=== PATIENT | female | born 1980 | race Caucasian/White ===

== ENCOUNTER 2016-12-26 19:00 | Observation (INO) | payer OTHER | END 2016-12-26 19:45 | disposition home or self-care (01) | LOC: FLD 19:00 | PROVIDERS: ADMIT Obstetrics & Gynecology; ATTEND Obstetrics & Gynecology | DX: O36.8190 Decreased fetal movements, unspecified trimester, not applicable or unspecified (principal) | CPT/HCPCS: G0378 ==

== ENCOUNTER 2017-01-15 00:19 | Inpatient (IN) | payer OTHER ==
--- NOTE | 2017-01-15 01:53 | OBPROG ---
Labor Progress Note Assessment/Plan: Assessment:cat 1 fhr denies regular pain continuing to leak meconium stained fluid irregular contractions denies questions discussed waiting x 8-12 hours exam 75/-3 cephalic posterior medium Plan:wait 8-12 h before augmentation, membrane stripping to encourage labor 01/15/17 01:51 Subjective/Intrapartum Course: 01/15/17 01:50 Doing well. Denies pain srom meconium stained fluid at 2300. 01/14/2017 + fm + bloody show irregular contractions - SVE Dilation (cm): 1 Effacement (%): 75 Station: -3 Membranes: SROM Amniotic Fluid Color: Meconium Stained - Contraction Pattern Assessment Current Contraction Pattern: Irregular - AP Antepartum Course: gbs negative. anxiety on problem list. + CF carrier. In the middle of a divorce. 01/15/17 01:53 - Physical Exam General Appearance: WD/WN, alert, no apparent distress Respiratory: chest non-tender, lungs clear, normal breath sounds Cardiac/Chest: regular rate, rhythm Abdomen: normal bowel sounds Extremities: normal range of motion, Andrae's sign (negative bilaterally) DTR- Lower Extremities: Knee (R): 1+, Knee (L): 1+ (no clonus) Skin: normal color, warm/dry Neuro/Psych: no motor/sensory deficits, alert, normal mood/affect, oriented x 3 Oxytocin Orders Assessment - Pre-Induction/Augmentation Assessment Gestational Age: 39 week(s) and 0 day(s) ICD10 Worksheet Patient Problems: Problems Problem Status Onset Premature rupture of membranes (PROM) at term with onset of labor after 24 hours , antepartum Acute - ICD10 Problem Qualifiers (1) Premature rupture of membranes (PROM) at term with onset of labor after 24 hours, antepartum
[2017-01-15] MEDS ORDERED: EPSOM SALT 454 GM TP PRN (01:57)
[2017-01-15] MEDS ORDERED: TERBUTALINE SULFATE 1 MG/ML VIAL IV PRN (01:57)
[2017-01-15] MEDS ORDERED: OLIVE OIL 118 ML BTL MISC PRN (01:57)
[2017-01-15] MEDS ORDERED: LR 1,000 ML IV PRN (01:57)
[2017-01-15] MEDS ORDERED: OXYTOCIN 20 UNIT in LR 1,000 ML IV PRN (01:57)
[2017-01-15 02:14] LABS: % IMMATURE GRANULYOCYTES 0.6 % (0.0-1.1); ABSOLUTE IMMATURE GRANULOCYTES 0.07 10^3/uL (0.00-0.10); ADD DIFF? NO; ADD MORPH? NO; ADD SCAN? NO; ATYPICAL LYMPHOCYTE FLAG 10 (0-99); FRAGMENT RBC FLAG 10 (0-99); HEMATOCRIT 37.9 % (38.0-47.0); HEMOGLOBIN 13.2 g/dL (12.6-16.3); LEFT SHIFT FLG 0 (0-99); LIPEMIA HEMOLYSIS FLAG 90 (0-99); MEAN CELL HEMOGLOBIN 31.9 pg (27.9-34.1); MEAN CELL HEMOGLOBIN CONCENTR. 34.8 g/dL (32.4-36.7); MEAN CELL VOLUME 91.5 fL (81.5-99.8); PLATELET CLUMPS FLAG 0 (0-99); PLATELET COUNT 247 10^3/uL (150-400); RED BLOOD CELL COUNT 4.14 10^6/uL (4.18-5.33); RED CELL DISTRIBUTION WIDTH 12.9 % (11.5-15.2)
--- NOTE | 2017-01-15 03:00 | GHP ---
[f rep st] HISTORY AND PHYSICAL DATE OF ADMISSION: 01/15/2017 HISTORY OF PRESENT ILLNESS: The patient is a 36-year-old, 1, para 0, with an EDC of 01/23/20 17, which gives her a gestational age of 39 weeks, who comes in with complaint of rupture of membrane s at 2300 on 01/14/2017. Meconium-stained fluid. Positive bloody show. Positive movement. T he patient has been seen through [facility] since 8-/ weeks' gestation with unknown LMP a nd a verification with an early ultrasound with initial visit. MEDICAL HISTORY: History of depression, history of swollen lymph nodes. Avoids gluten. SURGICAL HISTORY: [place] teeth extraction, toenail extraction in [facility]. FAMILY HISTORY: Noncontributory. OTHER MEDICAL HISTORY: Patient has a history of IBS. Patient is a positive CF carrier. FOC is nega tive. SOCIAL HISTORY: The patient is . Denies alcohol use. Denies tobacco use. Denies drug use . FAMILY HISTORY: Noncontributory. LABS: Patient is A positive, antibody negative. RPR is reactive. TP-PA is negative. Rubella is im mune. Hepatitis is negative. HIV is negative. Positive CF carrier. Pap, gonorrhea, and chlamydia are negative. AFP is negative. Verifi is negative. One-hour GTT is within normal limits. PHYSICAL EXAMINATION: Patient is awake, alert, oriented x3. Lungs are clear bilaterally. Heart rat e is regular and rhythmic. Bowel sounds are positive in all 4 quadrants. DTRs are 1+ with no clonus , and Homans sign is negative bilaterally. PLAN OF CARE: 1. GBS negative. 2. Expectant management of labor. 3. Membrane stripping with exam. 4. Consult Dr. Holly Bowens on plan of care. /[id number]/MODL
[2017-01-15] MEDS ORDERED: OXYTOCIN/LR *STANDARD DOSE PROTOCOL IV SCH (06:30)
[2017-01-15] MEDS ORDERED: OXYTOCIN/RINGERS LACTATE 500 ML IV SCH (06:30)
[2017-01-15] MEDS ORDERED: OLIVE OIL 118 ML BTL ONE (07:45)
[2017-01-15] MEDS ORDERED: AMMONIA AROMATIC 1 EACH AMP IH ONE (07:45)
[2017-01-15] MEDS ORDERED: LIDOCAINE 1% 300 MG/30 ML SDV ONE (07:45)
[2017-01-15] MEDS ORDERED: MISOPROSTOL 200 MCG TAB ONE (07:46)
[2017-01-15] MEDS ORDERED: TERBUTALINE SULFATE 1 MG/ML VIAL ONE (07:46)
[2017-01-15] MEDS ORDERED: fentaNYL 2MCG/ML/BUP 0.1% RTU 100 ML BAG EP ONE (11:24)
[2017-01-15] MEDS ORDERED: fentaNYL 100 MCG/2 ML INJ ONE (11:25)
[2017-01-15] MEDS ORDERED: BUPIVACAINE 0.25% 30 ML SDV ONE (11:25)
[2017-01-15] MEDS ORDERED: PHENYLEPHRINE HCL 100 MCG/ML SYR ONE (11:25)
--- NOTE | 2017-01-15 12:39 | PREANESOB ---
Obstetric Pre-Anesthesia Info - General Info Proposed Procedure: Labor and delivery with pitocin. : 1 Para: 0 WBD: 39 - Info Status: Full Term Monitors: External FHR Baseline (bpm): 130 FHR Pattern: Reassuring - Labor Status Cervical Dilation per last OB SVE: 1 Station per last OB SVE: -3 Rupture of Membranes Time: 23:00 Pitocin: In Use Indications for Labor Analgesia: Induction of Labor (SROM.), Pain Control Labor Epidural: Proposed Anesthesia ROS: [place] teeth. Allergies/Adverse Reactions: Allergy/AdvReac Type Severity Reaction Status Date / Time No Known Allergies Allergy Unverified 12/26/16 19:37 Visit Medications: Generic Name Dose Route Start Last Admin Trade Name Freq PRN Reason Stop Dose Admin Lactated Ringer's 1,000 mls @ 0 mls/hr 01/15/17 01:57 01/15/17 08:19 Lr IV 07/14/17 01:56 1,000 mls PRN PRN Administration SEE PROTOCOL CONDITIONS Protocol Per Protocol Oxytocin 20 unit/ Lactated 1,002 mls @ 150 mls/hr 01/15/17 01:57 Ringer's IV PRN PRN Post- bleeding Oxytocin 30 unit/ Lactated 503 mls @ 0 mls/hr 01/15/17 06:30 01/15/17 08:19 Ringer's IV 07/14/17 06:29 503 mls CONT CHRISTIANO Administration Protocol Per Protocol Ibuprofen 600 mg 01/15/17 01:57 Motrin PO 07/14/17 01:56 Q6HRS PRN post , inflammation Magnesium Sulfate 454 gm 01/15/17 01:57 Epsom Salt TP 07/14/17 01:56 Q1H PRN perineal discomfort Franklin Oil 118 ml 01/15/17 01:57 Sweet Oil MISC 07/14/17 01:56 ONCE PRN perineal massage Terbutaline Sulfate 0.25 mg 01/15/17 01:57 Brethine IV 07/14/17 01:56 ONCE PRN Tachysystole Discontinued Medications Generic Name Dose Route Start Last Admin Trade Name Freq PRN Reason Stop Dose Admin Ammonia (Aromatic Spirit) Confirm 01/15/17 07:45 Ammonia Aromatic Administered 01/15/17 07:46 Dose 1 each IH .STK-MED ONE Bupivacaine HCl Confirm 01/15/17 11:25 Sensorcaine 0.25% Sdv Administered 01/15/17 11:26 Dose 30 ml .ROUTE .STK-MED ONE Fentanyl Confirm 01/15/17 11:25 Sublimaze Administered 01/15/17 11:26 Dose 100 mcg .ROUTE .STK-MED ONE Fentanyl/Bupivacaine HCl Confirm 01/15/17 11:24 Fentanyl/Bupivacaine/Ns 2 Mcg/Ml 0.1% (Premix Administered 01/15/17 11:25 Dose 100 ml EP .STK-MED ONE Oxytocin/Lactated Ringer's 500 mls @ 0 mls/hr 01/15/17 06:30 Pitocin 30 Units/Lr (Premix) IV 07/14/17 06:29 CONT CHRISTIANO Protocol Per Protocol Lidocaine HCl Confirm 01/15/17 07:45 Lidocaine Hcl 1% Administered 01/15/17 07:46 Dose 300 mg .ROUTE .STK-MED ONE Misoprostol Confirm 01/15/17 07:46 Cytotec Administered 01/15/17 07:47 Dose 800 mcg .ROUTE .STK-MED ONE Franklin Oil Confirm 01/15/17 07:45 Sweet Oil Administered 01/15/17 07:46 Dose 118 ml .ROUTE .STK-MED ONE Phenylephrine HCl Confirm 01/15/17 11:25 Neosynephrine Administered 01/15/17 11:26 Dose 1,000 mcg .ROUTE .STK-MED ONE Terbutaline Sulfate Confirm 01/15/17 07:46 Brethine Administered 01/15/17 07:47 Dose 1 mg .ROUTE .STK-MED ONE - Anesthesia History Response to Local Anesthetics: Normal Anesthesia & Operative History: No Prior Problems Family Anesthesia History: Not Applicable - Social History Substance Use/Abuse: Denies - Focused Exam Blood Pressure: 115/70 Heart Rate: 68 Respiratory Rate: 18 Height/Weight (Nursing): Height 165.1 cm Weight 68.492 kg Physical Exam: Within normal limits. ASA Status: II Labs: 01/15/17 01:35 Patient ABO/Rh A POSITIVE 01/15/17 01:35 - Plan Anesthetic Plan: CSE Consent Signed and on Chart: Yes Patient/Guardian Understands and Agrees to Plan: Yes Urgent/Emergent Case: Anes eval completed preop but documented later for safe timely pt care (Written consent signed after CSE.)
[2017-01-15] MEDS ORDERED: PHENYLEPHRINE HCL 100 MCG/ML SYR IVP PRN (12:42)
[2017-01-15] MEDS ORDERED: ONDANSETRON 4 MG/2 ML VIAL IVP PRN (12:42)
--- NOTE | 2017-01-15 12:42 | POSTANESTH ---
Post Anesthetic Evaluation Cardiovascular Status: Normal, Stable, Similar to Pre-Op Cond Respiratory Status: Normal, Stable, Similar to Pre-op Cond. Level of Consciousness/Mental Status: Can Participate in Eval, Alert and Oriented Pain Control: Adequate, Prn Tx Ordered Nausea/Vomiting Control: Adequate, Prn Tx Ordered Complications Possibly Related to Anesthesia: None Noted
[2017-01-15] MEDS ORDERED: fentaNYL 2MCG/ML/BUP 0.1% RTU 100 ML EP SCH (13:00)
[2017-01-15] MEDS ORDERED: LR 500 ML IV SCH (13:00)
--- NOTE | 2017-01-15 13:02 | OBPROG ---
Labor Progress Note Assessment/Plan: Assessment: 36 y/o @ 39 0/7 weeks with SROM light meconium on pitocin for augmentation of labor. Plan: Good cervical progression and pt now comfortable with her epidural. Continue to dose to achieve a good labor pattern. Will re check 2-3 hours. 01/15/17 13:00 Subjective/Intrapartum Course: 01/15/17 01:50 Doing well. Denies pain srom meconium stained fluid at 2300. 01/14/2017 + fm + bloody show irregular contractions 01/15/17 12:59 Pt doing well now comfortable with her epidural. Resting. Objective: 01/15/17 01:35 Patient ABO/Rh A POSITIVE 01/15/17 01:35 Temp Pulse Resp BP Pulse Ox 68 18 115/70 01/15/17 12:41 01/15/17 12:41 01/15/17 12:41 - SVE Dilation (cm): 6 Effacement (%): 90 Station: -1 Membranes: SROM Amniotic Fluid Color: Meconium Stained - Contraction Pattern Assessment Current Contraction Pattern: Irregular (Q 2-4) - FHR Assessment Mike FHR (bpm): 120 FHR Pattern Variability: Moderate FHR Category: 1 - AP Antepartum Course: gbs negative. anxiety on problem list. + CF carrier. In the middle of a divorce. 01/15/17 01:53 Oxytocin Orders Assessment - Pre-Induction/Augmentation Assessment Gestational Age: 39 week(s) and 0 day(s) ICD10 Worksheet Patient Problems: Problems Problem Status Onset Premature rupture of membranes (PROM) at term with onset of labor after 24 hours , antepartum Acute
[2017-01-15] MEDS ORDERED: ACETAMINOPHEN 325 MG TAB PO PRN (16:38)
[2017-01-15] MEDS ORDERED: SIMETHICONE 80 MG TAB CHEW PO PRN (16:38)
[2017-01-15] MEDS ORDERED: HYDROCORTISONE 0.5% CREAM TP PRN (16:38)
[2017-01-15] MEDS ORDERED: HYDROCODONE/APAP 5/325 TAB PO PRN (16:38)
--- NOTE | 2017-01-15 16:42 | OBDEL ---
Info Type: Vaginal Presentation at Delivery: Vertex L&D Analgesia/Anesthesia Type: Epidural GBS+: No Intrapartum Medications: Generic Name Dose Route Start Last Admin Trade Name Freq PRN Reason Stop Dose Admin Lactated Ringer's 1,000 mls @ 0 mls/hr 01/15/17 01:57 01/15/17 08:19 Lr IV 07/14/17 01:56 1,000 mls PRN PRN Administration SEE PROTOCOL CONDITIONS Protocol Per Protocol Oxytocin 30 unit/ Lactated 503 mls @ 0 mls/hr 01/15/17 06:30 01/15/17 08:19 Ringer's IV 07/14/17 06:29 503 mls CONT CHRISTIANO Administration Protocol Per Protocol - Infant Care Provider Underwriting Operations Manager/SWING TYPE LATHE OPERATOR: Lori De La Vega - Hospital Course Intrapartum: 01/15/17 01:50 Doing well. Denies pain srom meconium stained fluid at 2300. 01/14/2017 + fm + bloody show irregular contractions 01/15/17 12:59 Pt doing well now comfortable with her epidural. Resting. Indications for Delivery: SROM Vaginal Delivery - Delivery Provider Delivery Physician/CNM: Zara Bruce - Labor and Delivery Onset of Contractions Date: 01/15/17 Onset of Contractions Time: 10:45 Onset of Contractions Type: Augmented Rupture of Membranes Date: 01/14/17 Rupture of Membranes Time: 23:00 Rupture of Membranes Type: Spontaneous Amniotic Fluid Color: Meconium Stained Dilation Complete Date: 01/15/17 Dilation Complete Time: 15:02 Placenta Delivery Date: 01/15/17 Placenta Delivery Time: 16:22 Total Hours of Labor: 5 Laceration: 2nd Degree Repair: 2-0, Vicryl Vaginal Sponge Count Correct: Yes Vaginal Needle Count Correct: Yes Vaginal Sweep Performed: Yes EBL: 250 Delivery Events: Other (Specify) (compound posterior hand) - Medications Labor Augmentation/Induction Methods Used: Pitocin Labor Augmentation/Induction Indication: Contraction Strength Inadequate, Other (Specify) (SROM with inadequate labor) [place] Data Mike Delivery Date: 01/15/17 Delivery Time: 16:17 KARUNA: 01/22/17 Gestational Age: 39 week(s) and 0 day(s) Sex of : Male Score (1 Min): 7 Score (5 Min): 9 ICD10 Worksheet Patient Problems: Problems Problem Status Onset Premature rupture of membranes (PROM) at term with onset of labor after 24 hours , antepartum Acute (spontaneous vaginal delivery) Acute - ICD10 Problem Qualifiers (1) (spontaneous vaginal delivery)
[2017-01-15] MEDS: IBUPROFEN 600 MG TAB PO PRN ×2 (16:55→23:07)
[2017-01-15] MEDS: DOCUSATE SODIUM 100 MG CAP PO PRN (23:07)
[2017-01-16] MEDS: IBUPROFEN 600 MG TAB PO PRN ×3 (05:22→17:40)
--- NOTE | 2017-01-16 11:28 | OBPP ---
Progress Note Assessment/Plan: Assessment: 36 yo WF PPD#1 s/p of VMI in afternoon on 01/15/17. Doing well. Plan: Routine PP care 01/16/17 11:23 Subjective/ Course: Denies significant pain and uterine cramping. She reports minimal lochia. She is and ambulating without difficulty. She is voiding without difficulty. 01/16/17 11:25 Objective: 01/15/17 01:35 Patient ABO/Rh A POSITIVE 01/15/17 01:35 Temp Pulse Resp BP Pulse Ox 36.2 C 66 20 107/67 98 01/15/17 19:28 01/15/17 19:28 01/15/17 19:28 01/15/17 19:28 01/15/17 19:28 Uterine Position/Fundal Height: Umbilicus -2 Uterine Tone: Firm Physical Exam - Physical Exam EENT: PERRL/EOMI Neck: supple Respiratory: lungs clear, normal breath sounds Cardiac/Chest: normal peripheral pulses, regular rate, rhythm Abdomen: normal bowel sounds, soft Extremities: normal range of motion, normal inspection Skin: normal color, warm/dry Neuro/Psych: alert, normal mood/affect, oriented x 3
[2017-01-16] MEDS: DOCUSATE SODIUM 100 MG CAP PO PRN ×2 (11:36→21:04)
[2017-01-16 21:20] VITALS: RESP 16; O2SAT 97
[2017-01-17] MEDS: IBUPROFEN 600 MG TAB PO PRN ×2 (01:37→07:54)
[2017-01-17] MEDS: DOCUSATE SODIUM 100 MG CAP PO PRN (07:54)
[2017-01-17 09:21] VITALS: BP 88/52; PULSE 69; TEMP 98.4
--- NOTE | 2017-01-17 12:27 | OBGCSDC ---
General Delivery Information - General Info : 1 Para: 1 Abortions: 0 Type: Vaginal L&D Analgesia/Anesthesia Type: Epidural Admission Date: 01/15/17 Labs: Patient ABO/Rh A POSITIVE 01/15/17 01:35 Hct 37.9 % (38.0-47.0) L 01/15/17 01:35 - Hospital Course Antepartum: gbs negative. anxiety on problem list. + CF carrier. In the middle of a divorce. 01/15/17 01:53 Intrapartum: 01/15/17 01:50 Doing well. Denies pain srom meconium stained fluid at 2300. 01/14/2017 + fm + bloody show irregular contractions 01/15/17 12:59 Pt doing well now comfortable with her epidural. Resting. : Denies significant pain and uterine cramping. She reports minimal lochia. She is and ambulating without difficulty. She is voiding without difficulty. 01/16/17 11:25 01/17/17 12:24 S) pt doing well, she denies any pain. reports min bleeding; going well O) VSS Exam: Head: normocephalic, atraumatic Heart RRR, no murmur Chest: CTA-B Abd: soft, nontender Uterus: firm @ U-1 lochia: min rubra, no clots extremities: trace edema, negative davis's sign neuro: grossly normal A) [id number] s/p P) d/c home today routine PP care pelvic rest x 6 weeks RTO in 4/6 weeks 01/17/17 12:26 01/17/17 12:27 Vaginal - Delivery Provider Delivery Physician/CNM: Zara Bruce - Diagnosis Labor: Augmented Rupture of Membranes Type: Spontaneous Amniotic Fluid Color: Meconium Stained Laceration: 2nd Degree Repair: 2-0, Vicryl Delivery Events: Other (Specify) (compound posterior hand) - Delivery EBL: 250 Data Mike Delivery Date: 01/15/17 Delivery Time: 16:17 KARUNA: 01/22/17 Gestational Age: 39 week(s) and 2 day(s) Sex of : Male [place] Weight (gm): 2818 g Score (1 Min): 7 Score (5 Min): 9 Discharge Information - Discharge Information Prescriptions: Ibuprofen [Motrin (*)] 600 mg PO Q6HRS PRN #30 tab PRN Reason: post , inflammation Instruction/Follow Up: Four Weeks
== END 2017-01-17 12:20 | disposition home or self-care (01) | DRG 775 ==
LOC: FLD 00:19 → OBSVTOIN 01:58 → FOB 18:45
PROVIDERS: ADMIT Advanced Practice Midwife; ATTEND Obstetrics & Gynecology
DX: O42.02 Full-term premature rupture of membranes, onset of labor within 24 hours of rupture (principal); O70.1 Second degree perineal laceration during delivery; O77.0 Labor and delivery complicated by meconium in amniotic fluid; O32.8XX0 Maternal care for other malpresentation of fetus, not applicable or unspecified; Z3A.39 39 weeks gestation of pregnancy; Z37.0 Single live birth
CPT/HCPCS: J2370; J3010; J3105

== ENCOUNTER 2017-03-05 07:18 | Day surgery (SDC) | payer OTHER ==
[2017-03-05] MEDS ORDERED: ceFAZolin 2 GM/SWFI 2 GM/20 ML SYR IVP ONE (07:26)
--- NOTE | 2017-03-05 08:18 | GHP ---
[f rep st] PREOP HISTORY AND PHYSICAL DATE OF ADMISSION: 03/05/2017 ADMITTING DIAGNOSIS: Persistent right Bartholin gland cyst. HISTORY OF PRESENT ILLNESS: The patient is a 36-year-old 1, para 1-0-0-1, who is 8 weeks sta tus post a spontaneous vaginal delivery without complication. She was evaluated for her routine 6 we eks visit and was found to be healing well. However, patient had persistent perineal pain and was unsure if it was delay in her healing for her secondary perineal laceration or other etiolog y. On examination, the patient was seen to have a right Bartholin gland cyst, approximately 3 x 3 cm . Her perineal laceration sutures were intact, and there were no other complications or anatomical a lterations. We initially decided to follow expectantly because patient was not having significant pa in. Patient had sitz baths and gentle massage to try to induce the Bartholin gland cyst to drain. T hat was not effective over a course of a week, and on re-evaluation, she underwent an office I and D with local anesthesia, and there was purulent material extruded from the Bartholin's gland cyst. The area was irrigated copiously, and initially, the size went down dramatically. 4 days later, the pat ient was re-evaluated, and the cyst had reaccumulated. It was rubber cutting machine tender, and I gave the patient a n option of repeat deeper I and D in the office versus a Bartholin's gland cyst marsupialization, and patient wished to have definitive therapy with a marsupialization. She was consented for the proced ure. She understood the risks and benefits, the risks including bleeding, infection, damage to the v ulva and the Bartholin gland cyst, reaccumulation, and need for additional procedures. She understoo d these risks and benefits and agreed to proceed. PAST OBSTETRICAL HISTORY: She has had 1 . She is status post a spontaneous vaginal deliver y on January 15, 2017. She is currently nursing her baby, and everyone is doing well. PAST GYNECOLOGICAL HISTORY: The patient has no significant gynecological history. She has a normal menstrual triad. No history of any STDs. Never had a Bartholin's gland cyst before. PRIOR MEDICAL HISTORY: History of depression. History of lymphadenopathy. She avoids gluten for GI distress. SURGICAL HISTORY: [place] teeth extraction and toenail extraction in college. ALLERGIES: She has no known drug allergies. FAMILY HISTORY: Noncontributory. REVIEW OF SYSTEMS: Today is negative, except for the perineal discomfort as above. Patient is nursi ng her baby, feeling well, has had adequate weight loss and good energy in this period. PHYSICAL EXAMINATION: VITAL SIGNS: Subjectively today, she is afebrile. Vital signs are stable. C HEST: Clear to auscultation bilaterally. HEART: Regular rate and rhythm, no murmur. ABDOMEN: Sof t, nontender, nondistended. Normal bowel sounds. BREAST: No masses. No difficulties with mastitis . No abnormal drainage. PERINEUM: 3 x 3 cm right Bartholin gland cyst in the area where the incisi on was made for the I and D. Her perineal laceration from her delivery is completely healed. The va carlos is intact. Normal parous cervix. Uterus is anteverted, anteflexed, mobile, nontender. No adne xal masses. ASSESSMENT/PLAN: A 36-year-old 1, para 1-0-0-1, with persistent Bartholin gland cyst, for Ba rtholin gland cyst marsupialization. /[id number]/MODL
[2017-03-05] MEDS ORDERED: LR 1,000 ML IV ONE (08:19)
[2017-03-05] MEDS ORDERED: LIDOCAINE 1% 2 ML INJ ID PRN (08:19)
--- NOTE | 2017-03-05 08:21 | PDANEPAE ---
ANE History of Present Illness Bertholyn's cyst marsupilazation ANE Past Medical History - Cardiovascular History Hx Hypertension: No Hx Arrhythmias: No Hx Chest Pain: No Hx Coronary Artery / Peripheral Vascular Disease: No Hx CHF / Valvular Disease: No Hx Palpitations: No Cardiovascular History Comment: low BP - Pulmonary History Hx COPD: No Hx Asthma/Reactive Airway Disease: No Hx Recent Upper Respiratory Infection: No Hx Oxygen in Use at Home: No Hx Sleep Apnea: No Sleep Apnea Screening Result - Last Documented: Negative - Neurologic History Hx Cerebrovascular Accident: No Hx Seizures: No Hx Dementia: No - Endocrine History Hx Diabetes: No Hypothyroid: No - Renal History Hx Renal Disorders: No - Liver History Hx Hepatic Disorders: No - Neurological & Psychiatric Hx Hx Neurological and Psychiatric Disorders: No - Cancer History Hx Cancer: No - GI History GERD: no Hx Gastrointestinal Disorders: Yes Gastrointestinal History Comment: constipation - Other Health History Other Health History: vaginal delivery Dec. painful Bartholin cyst - Chronic Pain History Chronic Pain: No - Surgical History Prior Surgeries: tonsillectomy. wisdom teeth -oral surgeon's ANE Review of Systems Review of Systems: - Exercise capacity METS (RN): 4 METS ANE Patient History - Allergies Allergies/Adverse Reactions: codeine Allergy (Verified 03/04/17 15:33) Vomiting - Home Medications Home Medications: Miralax 17 gm (*) 03/04/17 [Last Taken Unknown] - Anes Hx Anes Hx: awareness under anesthesia (Pt. describes "waving her hand" during tonsillectomy) - Smoking Hx Smoking Status: Former smoker - Family Anes Hx Family Anes Hx: none ANE Labs/Vital Signs - Vital Signs Height: 165.1 cm Weight: 58.06 kg ANE Physical Exam - Airway Neck exam: FROM Mallampati Score: Class 2 Mouth exam: normal dental/mouth exam - Pulmonary Pulmonary: clear to auscultation - Cardiovascular Cardiovascular: regular rate and rhythym - ASA Status ASA Status: II ANE Anesthesia Plan Anesthesia Plan: GA w LMA (alternatives discussed. Patient prefers GA. Questions answered.)
[2017-03-05] MEDS ORDERED: BUPIVACAINE 0.25% 30 ML SDV ONE (08:24)
[2017-03-05] MEDS ORDERED: MIDAZOLAM 2 MG/2 ML VIAL IVP ONE (08:28)
[2017-03-05] MEDS ORDERED: fentaNYL 100 MCG/2 ML INJ ONE ×2 (08:32→10:00)
[2017-03-05] MEDS ORDERED: PROPOFOL 200 MG/20 ML VIAL ONE ×2 (08:33)
[2017-03-05] MEDS ORDERED: DEXAMETHASONE 4 MG/ML VIAL ONE (08:33)
[2017-03-05 08:39] VITALS: PULSE 69
[2017-03-05] MEDS ORDERED: ONDANSETRON 4 MG/2 ML VIAL ONE (09:09)
[2017-03-05] MEDS ORDERED: KETOROLAC 30 MG/1 ML SDV ONE (09:24)
[2017-03-05] MEDS ORDERED: HYDROCODONE/APAP 5/325 TAB PO PRN (09:44)
[2017-03-05] MEDS ORDERED: IBUPROFEN 600 MG TAB PO PRN (09:45)
[2017-03-05] MEDS ORDERED: DEXAMETHASONE 4 MG/ML VIAL IVP PRN (09:47)
[2017-03-05] MEDS ORDERED: NALOXONE HCL 0.4 MG/ML INJ IVP PRN (09:47)
--- NOTE | 2017-03-05 09:48 | POSTOPPROG ---
Post Op Note Date of Operation: 03/05/17 Surgeon: Zara Bruce Anesthesiologist: Dr Sam Cannon Anesthesia: GET(General Endotracheal) Pre-op Diagnosis: persistent Bartholian's gland cyst right Post-op Diagnosis: same Procedure: Right Bartholian's gland cyst marsupilization Findings: right Bartholian's gland cyst Inf/Abcess present in the surg proc area at time of surgery?: No Depth: Superfical (Skin SQ) EBL: 50-100 Total fluids administered: 600 Complications: none Specimen(s): right Bartholian's gland cyst wall
[2017-03-05] MEDS: fentaNYL 100 MCG/2 ML INJ IVP PRN ×2 (10:01→10:28)
--- NOTE | 2017-03-05 10:20 | PDANEPAE ---
ANE History of Present Illness EDG and colonoscopy ANE Past Medical History - Cardiovascular History Hx Hypertension: No Hx Arrhythmias: No Hx Chest Pain: No Hx Coronary Artery / Peripheral Vascular Disease: No Hx CHF / Valvular Disease: No Hx Palpitations: No Cardiovascular History Comment: low BP - Pulmonary History Hx COPD: No Hx Asthma/Reactive Airway Disease: No Hx Recent Upper Respiratory Infection: No Hx Oxygen in Use at Home: No Hx Sleep Apnea: No Sleep Apnea Screening Result - Last Documented: Negative - Neurologic History Hx Cerebrovascular Accident: No Hx Seizures: No Hx Dementia: No - Endocrine History Hx Diabetes: No Hypothyroid: No - Renal History Hx Renal Disorders: No - Liver History Hx Hepatic Disorders: No - Neurological & Psychiatric Hx Hx Neurological and Psychiatric Disorders: No - Cancer History Hx Cancer: No - GI History GERD: no Hx Gastrointestinal Disorders: Yes Gastrointestinal History Comment: constipation - Other Health History Other Health History: vaginal delivery Dec. painful Bartholin cyst - Chronic Pain History Chronic Pain: No - Surgical History Prior Surgeries: tonsillectomy. wisdom teeth -oral surgeon's ANE Review of Systems Review of Systems: - Exercise capacity METS (RN): 4 METS ANE Patient History - Allergies Allergies/Adverse Reactions: codeine Allergy (Verified 03/04/17 15:33) Vomiting - Home Medications Home Medications: Miralax 17 gm (*) 03/04/17 [Last Taken 03/04/17] - NPO status NPO Since - Liquids (Date): 03/05/17 NPO Since - Liquids (Time): 05:45 NPO Since - Solids (Date): 03/04/17 NPO Since - Solids (Time): 19:00 - Anes Hx Anes Hx: no prior problems - Smoking Hx Smoking Status: Former smoker - Alcohol Use Alcohol Use: Other (6 beers/day) - Family Anes Hx Family Anes Hx: none ANE Labs/Vital Signs - Vital Signs Blood Pressure: 100/63 Heart Rate: 69 Respiratory Rate: 12 O2 Sat (%): 95 Height: 165.1 cm Weight: 58.06 kg
--- NOTE | 2017-03-05 10:28 | GOP ---
[f rep st] OPERATIVE REPORT DATE OF OPERATION: 03/05/2017 SURGEON: Zara Bruce MD ANESTHESIA: General anesthesia. ANESTHESIOLOGIST: Dr. Sam Boyer. PREOPERATIVE DIAGNOSIS: Persistent right Bartholin's gland cyst. POSTOPERATIVE DIAGNOSIS: Persistent right Bartholin's gland cyst. PROCEDURE PERFORMED: Marsupialization of a right Bartholin's gland cyst. FINDINGS: ESTIMATED BLOOD LOSS: For the procedure was 50 cc. INDICATIONS: The patient is a 36-year-old 1, para 1-0-0-1, who is 8 weeks status post a spon taneous vaginal delivery without any complication. She presented for her 6 weeks visit wi th increasing pain in her perineum, concern for improper healing of her second-degree perineal lacera tion. Upon examination, the patient was found to have a right Bartholin's gland cyst and a well-heal ed second-degree perineal laceration. The patient was initially followed expectantly with sitz baths and gentle massage that did not help. In fact, the Bartholin's gland cyst worsened. She had an off ice I and D and purulent material was seen upon extrusion on the office I and D. The patient tolerat ed that well, but presented for followup 1 week later, and the gland was persistent and increasing in pain again. The patient was offered a repeat office I and D versus a surgical marsupialization in t operating room and patient wished to have surgery. She was consented for the procedure. She unde rstood the risks and benefits, the risks including bleeding, infection, damage to the vulva and need for additional procedures. She understood these risks and benefits agreed to proceed. DESCRIPTION OF PROCEDURE: Patient was taken to the operating room where she was placed under general anesthesia without difficulty. She was prepped and draped in the dorsal lithotomy position, and she had previously drained her bladder. After WHR time-out was performed, the right labium minora and p erineum were grasped with Allis clamps and a cruciate incision was made along the right vaginal wall overlying the Bartholin's gland cyst and dissection was carried down deep through the Bartholin's gla nd cyst. The cyst wall was entered and grasped and the majority of the gland was removed with Metzen jacqui scissors until the cyst wall was opened. Marsupialization was then performed with 2-0 Vicryl in a circumferential fashion, sewing the cyst wall to the skin of the vagina in an open fashion. There were small areas of bleeding that were cauterized and sutured with [id number] sutures of 2-0 Vi cryl, and good hemostasis was obtained. There was noted to be entry into the cavity on the right on the right vulvar cyst wall with appearance of fat. The cavity was then packed with iodoform gauze an d hemostasis was obtained. The patient tolerated the procedure well. Sponge, lap, needle, and instr ument counts were correct x2. Patient went to the recovery room in good condition. IV FLUIDS: 500 cc. URINE OUTPUT: Not measured. PATHOLOGIC SPECIMEN: Will be Bartholin's gland cyst wall. /[id number]/MODL
[2017-03-05] MEDS ORDERED: HYDROCODONE/APAP 5/325 TAB ONE (10:48)
[2017-03-05 11:14] VITALS: RESP 13
[2017-03-05 11:48] VITALS: BP 101/68; TEMP 97.7; O2SAT 97
--- NOTE | 2017-03-05 15:43 | POSTANESTH ---
Post Anesthetic Evaluation Cardiovascular Status: Normal, Stable Respiratory Status: Normal, Stable Level of Consciousness/Mental Status: Can Participate in Eval Pain Control: Adequate, Prn Tx Ordered Nausea/Vomiting Control: Adequate, Prn Tx Ordered Complications Possibly Related to Anesthesia: None Noted
== END 2017-03-05 12:02 | disposition home or self-care (01) ==
LOC: FSGY 07:18
PROVIDERS: ATTEND Obstetrics & Gynecology
PROC: 0U9L0ZZ Drainage of Vestibular Gland, Open Approach (ICD-10-PCS; principal; 2017-03-05 09:00)
DX: N75.0 Cyst of Bartholin's gland (principal)
CPT/HCPCS: J0171; J0690; J1100; J1885; J2250; J2405; J2704; J3010

== ENCOUNTER → 2017-09-19 | Outpatient (CLI) | payer OTHER | LOC: FIMAGING 13:03 | PROVIDERS: ATTEND Family Medicine | DX: E04.1 Nontoxic single thyroid nodule (principal) ==